=== PATIENT | female | born 1995 | race Caucasian/White ===

== ENCOUNTER 2018-10-19 11:17 | Emergency (ER) | payer BC ==
[2018-10-19] MEDS ORDERED: IBUPROFEN 600 MG TAB PO ONE (12:19)
--- NOTE | 2018-10-19 12:24 | EDPHY ---
H & P Time Seen by Provider: 10/19/18 11:27 HPI/ROS: CHIEF COMPLAINT: Fall, back injury, syncope HISTORY OF PRESENT ILLNESS: 22-year-old healthy female walking down some exterior steps a when she slipped and fell landing on her posterior back. Patient reports that she had the wind knocked out of her. She did not strike her head. She did not lose consciousness with the initial fall. However as she was laying there, she reports severe pain and then had a syncopal event. She was able to get up afterwards and walk into the house. Her boyfriend states that she was crying hysterically, moaning, complaining of back pain. She laid down and had another brief syncopal event. This occurred around 930 this morning. No numbness or tingling in the arms or legs. Patient currently denies any anterior chest pain, palpitations, lightheadedness , nausea, vomiting, or dizziness. She has no significant cardiac history. She reports having a syncopal event 1 prior time when she was dehydrated. Had alcohol last night but not and excessive quantities. Denies fevers or chills, denies vomiting, diarrhea, urinary complaints, headache , or lightheadedness. REVIEW OF SYSTEMS: A comprehensive 10 system review of systems was reviewed and is otherwise negative aside from elements mentioned in the history of present illness and medical decision making. PAST MEDICAL HISTORY: Patient denies. 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 VITAL SIGNS Reviewed by me. GENERAL: Well-developed, well-nourished, reports discomfort in her posterior chest.. HEENT: Atraumatic. Eyes: No icterus, no injection. Mouth: moist mucous membranes. No erythema or lesions. Neck: Nontender to palpation. Supple with no adenopathy. BACK: No thoracic tenderness to palpation. No lumbar tenderness palpation. Mild paraspinous tenderness across the thoracic region. No crepitus. LUNGS: Clear to auscultation bilaterally, no wheezes, rhonchi or rales. CARDIAC: Regular rate and rhythm, no rubs, murmurs or gallops. ABDOMEN: Soft, nontender, nondistended, bowel sounds normal. BACK: No CVA tenderness. EXTREMITIES: No trauma. No edema. Range of motion is normal throughout. NEURO: Alert and oriented, grossly nonfocal. SKIN: Warm and dry, no rash. PSYCHIATRIC: Normal mentation, no agitation. Smoking Status: Never smoked Constitutional: Initial Vital Signs Temperature (C) 36.7 C 10/19/18 11:20 Heart Rate 81 10/19/18 11:20 Respiratory Rate 18 10/19/18 11:20 Blood Pressure 100/61 10/19/18 11:20 O2 Sat (%) 97 10/19/18 11:20 O2 Delivery Mode Room Air Allergies/Adverse Reactions: No Known Allergies Allergy (Unverified 10/19/18 11:20) Home Medications: Medication Instructions Recorded NK [No Known Home Meds] 10/19/18 Medical Decision Making - Diagnostics EKG Interpretation: 12-LEAD EKG: Please see the full report in [facility]. My interpretation: Normal sinus rhythm, normal intervals. Imaging Results: Imaging Impressions Chest X-Ray 10/19/18 11:43 Impression: Chest negative for acute posttraumatic sequela. Imaging: Discussed imaging studies w/ call center consultant Radiologist, I viewed and interpreted images myself ED Course/Re-evaluation: Is 22-year-old female going down some icy steps this morning when she slipped and fell landing on her posterior back. Sounds like the wind was knocked out of her. She had a syncopal episode at that time and also had syncopal episode a few moments later. Chest x-ray demonstrates no rib fractures, thoracic spine abnormalities, or pulmonary contusions or pneumothorax. EKG is normal sinus rhythm. Patient is not . Urinalysis has no blood. I believe the patient is safe to be discharged home. Doubt cardiac syncope. Appears to be most likely vasovagal versus almost a breath-holding type phenomena. Differential Diagnosis: Differential diagnosis of the patient syncope was considered including but not limited to vasovagal syncope, arrhythmia, dehydration, and blood loss. - Data Points Laboratory Results: 10/19/18 10/19/18 11:50 11:43 Urine Color YELLOW Urine Appearance CLEAR Urine pH 7.0 (5.0-7.5) Ur Specific [place] 1.018 (1.002-1.030) Urine Protein NEGATIVE (NEGATIVE) Urine Ketones NEGATIVE (NEGATIVE) Urine Blood NEGATIVE (NEGATIVE) Urine Nitrate NEGATIVE (NEGATIVE) Urine Bilirubin NEGATIVE (NEGATIVE) Urine Urobilinogen NEGATIVE EU EU (0.2-1.0) Ur Leukocyte Esterase NEGATIVE (NEGATIVE) Urine RBC NONE SEEN /hpf /hpf (0-3) Urine WBC 1-3 /hpf /hpf (0-3) Ur Epithelial Cells TRACE /lpf /lpf (NONE-1+) Urine Mucus 3+ /lpf H /lpf (NONE-1+) Urine Glucose NEGATIVE (NEGATIVE) Urine Test NEGATIVE Medications Given: Discontinued Medications Ibuprofen (Motrin) 600 mg PO EDNOW ONE Stop: 10/19/18 12:20 Last Admin: 10/19/18 12:47 Dose: 600 mg Point of Care Test Results: Urine Dip Collection Date 10/19/18 Collection Time 11:55 Specific [place] (1.002-1.030) 1.010 PH (5.0-7.5) 7.5 Leukocytes (Negative) Negative Nitrites (Negative) Negative Protein (Negative) Trace Glucose (Negative) Negative Ketones (Negative) Negative Blood (Negative) Negative Departure - Departure Disposition: Home, Routine, Self-Care Clinical Impression: Posterior chest contusion Syncope Qualifiers: Syncope type: unspecified Qualified Code(s): R55 - Syncope and collapse Condition: Good Instructions: Syncope (ED), Contusion in Adults (ED) Additional Instructions: Okay to use Tylenol and ibuprofen for any discomfort. Stay well-hydrated. Return to the emergency department or seek care if you have any recurrent fainting, severe shortness of breath, numbness or tingling in your arms or legs , or other concerns. Referrals: NONE *PRIMARY CARE P,. [Primary Care Provider] - As per Instructions
[2018-10-19 13:21] VITALS: BP 119/78
--- NOTE | 2018-10-19 15:34 | CPEKG ---
Test Reason : OPEN Blood Pressure : / mmHG Vent. Rate : 074 BPM Atrial Rate : 073 BPM P-R Int : 168 ms QRS Dur : 085 ms QT Int : 386 ms P-R-T Axes : -24 053 032 degrees QTc Int : 429 ms Sinus rhythm Confirmed by Shante Lucas ([id number]) on 10/19/2018 3:34:23 PM Referred By: Shante Lucas Confirmed By:Shante Lucas
== END 2018-10-19 13:23 | disposition home or self-care (01) ==
DX: R55 Syncope and collapse (principal); S20.229A Contusion of unspecified back wall of thorax, initial encounter; W10.8XXA Fall (on) (from) other stairs and steps, initial encounter; Y99.9 Unspecified external cause status